=== PATIENT | female | born 1950 | race Caucasian/White ===

== ENCOUNTER 2018-03-16 13:31 | Emergency (ER) | payer OTHER ==
[~2018-03-16] VITALS: Ht 154.9 cm; Wt 66.7 kg
[2018-03-16 13:45] VITALS: Ht 154.9 cm; Wt 66.7 kg
[2018-03-16] MEDS ORDERED: SIMV10TA PO (15:49)
[2018-03-16] MEDS ORDERED: PROP40TA4 PO (15:49)
[2018-03-16] MEDS ORDERED: LORA-444 PO (15:49)
[2018-03-16 18:45] VITALS: BP 116/67; PULSE 70; RESP 18
--- NOTE | 2018-03-16 21:55 | ERD ---
ER Documentation Chief Complaint Chief Complaint pelvic pain with vag bleed x 5 days HPI 68-year-old female presenting with scant amount of vaginal bleeding for the past 5 days. She has had some intermittent aching in her lower abdomen but no other associated symptoms. She denies any dysuria or hematuria. No fevers or chills. She states that she mostly has spotting has had large clots pass as well. She has not seen a assignment manager in the past 2 years. She denies any other symptoms. ROS All systems reviewed and are negative except as per history of present illness. Medications Home Meds Reported Medications Lorazepam* (Ativan*) 2 Mg Tablet, 2 MG PO BID PRN for ANXIETY, #30 TAB 03/16/18 Simvastatin* (Zocor*) 10 Mg Tablet, 10 MG PO QHS, #30 TAB 03/16/18 Propranolol Hcl* (Propranolol Hcl*) 40 Mg Tablet, 40 MG PO DAILY, TAB 03/16/18 Allergies Allergies: Coded Allergies: No Known Allergy (Unverified , 03/16/18) PMhx/Soc History of Surgery: Yes () Anesthesia Reaction: No Hx Alcohol Use: No Hx Substance Use: No Hx Tobacco Use: No Smoking Status: Never smoker FmHx Family History: No coronary disease Physical Exam Vitals Vital Signs Date Temp Pulse Resp B/P (MAP) Pulse Ox O2 O2 Flow FiO2 Time Delivery Rate 03/16/18 98.2 70 18 116/67 99 Room Air 18:45 (83) 03/16/18 65 18 129/53 99 Room Air 16:45 (78) 03/16/18 98.4 84 18 135/75 98 13:45 (95) Physical Exam Const: No acute distress Head: Atraumatic Eyes: Normal Conjunctiva Resp: Clear to auscultation bilaterally Cardio: Regular rate and rhythm, no murmurs Abd: Soft, non tender, non distended. No palpable masses. Normal bowel sounds Pelvic: External genitalia normal. No blood in the vaginal vault. Cervix appears normal with no masses or erythema. There is scant amount of blood- tinged discharge. No masses and no cervical motion tenderness Skin: No petechiae or rashes Back: No midline or flank tenderness Ext: No cyanosis, or edema Neur: Awake and alert Psych: Normal Mood and Affect Result Diagram: 03/16/18 1600 03/16/18 1600 Results 24 hrs Laboratory Tests Test 03/16/18 16:00 White Blood Count 10.6 10^3/ul Red Blood Count 4.41 10^6/ul Hemoglobin 13.2 g/dl Hematocrit 41.1 % Mean Corpuscular Volume 93.2 fl Mean Corpuscular Hemoglobin 29.9 pg Mean Corpuscular Hemoglobin Concent 32.1 g/dl Red Cell Distribution Width 12.8 % Platelet Count 269 10^3/UL Mean Platelet Volume 10.5 fl Immature Granulocytes % 0.400 % Neutrophils % 52.7 % Lymphocytes % 37.1 % Monocytes % 7.6 % Eosinophils % 1.4 % Basophils % 0.8 % Nucleated Red Blood Cells % 0.0 /100WBC Immature Granulocytes # 0.040 10^3/ul Neutrophils # 5.6 10^3/ul Lymphocytes # 3.9 10^3/ul Monocytes # 0.8 10^3/ul Eosinophils # 0.2 10^3/ul Basophils # 0.1 10^3/ul Nucleated Red Blood Cells # 0.0 10^3/ul Prothrombin Time 13.2 Sec Prothrombin Time Ratio 1.0 INR International Normalized Ratio 0.99 Activated Partial Thromboplast Time 31.5 Sec Urine Color YELLOW Urine Clarity CLEAR Urine pH 6.0 Urine Specific [place] 1.014 Urine Ketones NEGATIVE mg/dL Urine Nitrite NEGATIVE mg/dL Urine Bilirubin NEGATIVE mg/dL Urine Urobilinogen 2+ mg/dL Urine Leukocyte Esterase NEGATIVE Luis/ul Urine Microscopic RBC 3 /HPF Urine Microscopic WBC 1 /HPF Urine Squamous Epithelial Cells FEW /HPF Urine Hemoglobin 2+ mg/dL Urine Glucose NEGATIVE mg/dL Urine Total Protein NEGATIVE mg/dl Sodium Level 141 mmol/L Potassium Level 4.2 mmol/L Chloride Level 108 mmol/L Carbon Dioxide Level 24 mmol/L Anion Gap 9 Blood Urea Nitrogen 15 mg/dl Creatinine 0.74 mg/dl Est Glomerular Filtrat Rate mL/min > 60 mL/min Glucose Level 105 mg/dl Calcium Level 9.4 mg/dl Beta HCG, Quantitative < 2.4 mIU/ml Procedures/MDM EMERGENT LABS AND DIAGNOSTIC STUDIES: Lab Results above were reviewed and interpreted by me. CBC: no anemia or evidence of infection BMP: No evidence of electrolyte abnormality, renal failure, hypoglycemia Coags show no evidence of coagulopathy UA shows no evidence of infection Radiology Results as interpreted by Radiology below were reviewed by Adeola Sal MD: Ultrasound pelvis: IMPRESSION: Pelvic ultrasound demonstrates a diffusely heterogeneous and thickened endometrium. To the endometrial hyperplasia or carcinoma would recommend gynecologic evaluation. Physician Claire Date Time Electronically viewed and signed by Physician Claire on 03/16/2018 17:29 Initial Nursing notes reviewed. Previous Medical Records requested via the Electronic Health Record. EMERGENCY DEPARTMENT COURSE / MEDICAL DECISION MAKING: Patient is presenting with abnormal vaginal bleeding for the past 5 days. She is hemodynamically stable with no signs of anemia. Labs did not show any significant abnormalities. Exam was unremarkable. I am concerned about possible malignancy. I explained to the patient that she needs to see a assignment manager to get an endometrial biopsy and further workup. Patient understands discharge plan. Return precautions discussed. Test results provid ed to the patient. Patient's blood pressure was elevated (>120/80) but appears stable without evide nce of hypertensive emergency or urgency. The patient was counseled about the risks of hypertension and urged to pursue outpatient monitoring and therapy within a week with their primary care physician. Departure Diagnosis: Primary Impression: Vaginal bleeding, abnormal Condition: Stable Patient Instructions: Dysfunctional Uterine Bleeding Referrals: [facility] [employer] [place] [id number] [facility] [address] [place] [address] [address] [place] [address] [place] [address] [address] [facility] [address] [facility] [address], [place] [address] [address] STEWART, [facility] [address] [facility] [place] [address] [facility] [address] [place] [address] [facility], [facility] [id number] - DR GARCIA, ESTELA [address], [place] [address] DR COPE, JERROD [address] [facility]. [address], [place] [address] DR FISCHER, [facility] [address] [place], [place] [id number] Additional Instructions: Es necesario programar krzysztof maisha con un gineclogo. Necesitar krzysztof biopsia de endometrio. JO SAL MD Mar 16, 2018 21:55
== END 2018-03-16 18:47 | disposition home or self-care (01) ==
LOC: E/R 13:31
DX: N93.9 Abnormal uterine and vaginal bleeding, unspecified (principal); R10.2 Pelvic and perineal pain
CPT/HCPCS: 36415; 76830; 76856; 80048; 81001; 84702; 85025; 85610; 85730; 87086; 87210